=== PATIENT | male | born 1950 | race Caucasian/White ===

== ENCOUNTER 2019-07-27 01:29 | Emergency (ER) | payer OTHER ==
[~2019-07-27] VITALS: Ht 170.2 cm; Wt 93.9 kg
[2019-07-27] MEDS ORDERED: LIPITOR10 MG PO (01:48)
[2019-07-27] MEDS ORDERED: AMLODIPINE BESY10 MG PO (01:49)
[2019-07-27] MEDS ORDERED: SUPER THERAVIT1 EACH PO (01:50)
[2019-07-27] MEDS ORDERED: CELEXA 20 MG TA20 MG PO (01:50)
[2019-07-27 02:22] LABS: ABSOLUTE NEUTROPHILS 2.4 thou/uL (1.4-8.2); BASOPHILS 0.8 % (0.0-2.0); EOSINOPHILS 8.4 % (0.0-3.0); HEMATOCRIT 44.6 % (42.0-52.0); LYMPHOCYTES 37.6 % (24.0-44.0); MCH 31.3 pg (26.0-34.0); MCHC 33.7 g/dL (28.0-37.0); MCV 92.7 fL (80.0-100.0); MONOCYTES 10.9 % (1.0-8.0); PLATELET COUNT 240 thou/uL (150-400); POLYS 42.3 % (36.0-66.0); RBC 4.81 mil/uL (4.50-6.00); RDW 13.2 % (10.5-14.5); WBC 5.6 thou/uL (4.0-11.0)
[2019-07-27 02:28] LABS: ANION GAP 11 mmol/L (7-16); BUN 15 mg/dL (7-18); CALCIUM 8.3 mg/dL (8.5-10.1); CHLORIDE 104 mmol/L (98-107); CO2 26 mmol/L (21-32); CREATININE 1.1 mg/dL (0.7-1.3); GLUCOSE 173 mg/dL (74-106); POTASSIUM 3.1 mmol/L (3.5-5.1); SODIUM 141 mmol/L (136-145)
[2019-07-27 02:34] LABS: ALBUMIN 3.8 g/dL (3.4-5.0); DIRECT BILIRUBIN < 0.1 mg/dL (<0.1-0.3); SGOT 18 U/L (15-37); SGPT 23 U/L (30-65); TOTAL BILIRUBIN 0.4 mg/dL (<0.1-1.0); TOTAL PROTEIN 7.2 g/dL (6.4-8.2)
[2019-07-27 02:37] LABS: APTT 29.6 Seconds (24.5-32.8); PROTIME 10.4 Seconds (9.3-11.4)
[2019-07-27 03:33] VITALS: BP 142/76
== END 2019-07-27 03:36 | disposition home or self-care (01) ==
LOC: ER 01:29
PROVIDERS: Emergency Medicine
DX: K92.2 Gastrointestinal hemorrhage, unspecified (principal); I10 Essential (primary) hypertension; E78.00 Pure hypercholesterolemia, unspecified